=== PATIENT | male | born 1990 | race Caucasian/White ===

== ENCOUNTER 2025-01-12 16:46 | Emergency (ER) | payer SELFPAY ==
[2025-01-12] VITALS (11 sets, daily range): BP systolic 137–172; BP diastolic 80–119; PULSE 52–67; RESP 10–20; TEMP 36.7; O2SAT 96–100; BMI 23.5
--- NOTE | 2025-01-12 16:49 | ED_ITS ---
<Statement entered by Donta Mcneill MD - 01/12/25 23:24> I was consulted by the ALANNAH, and we discussed the complexity of the problems being addressed. I approved the treatment and management plan for this patient's care in the emergency department, thus performing a substantive portion of the medical decision making. Donta Mcneill MD, ALEJANDRO, FACEP Discharge Plan Disposition Patient Disposition: Home, Self-Care Condition: Good Prescriptions Prescriptions: No Action No Known Home Medications Referrals Follow up/Referrals: Provider,Referral, [Primary Care Provider, Medical] - See instructions Activity Restrictions/Add. Instructions Additional Instructions/Restrictions: I recommend that you establish care with a primary care physician and get referral to ear nose and throat. You may also need a further workup if this persists with MRI. We have essentially ruled out any serious or life- threatening condition today. If you have persistent new or worsening signs or symptoms follow-up with your PCP within 48 hours or return to the ER as needed. Clinical Impressions Clinical Impression: Dizziness Print Language Print Language: Marshallese Discharge ED Provider: Donta Mcneill General Adult HPI General Chief complaint: Dizziness Stated complaint: dizzy,light headed,weakness Time Seen by Provider: 01/12/25 16:49 History of Present Illness HPI narrative: Patient presents for evaluation of initially lightheadedness . Patient states his symptoms have been ongoing for at least a couple of weeks. Patient states that he has been under a lot of stress and works a very physically demanding job in construction and reports that he may not be eating and drinking normally. He states he has periodically had lightheadedness primarily when trying to ambulate or walk. He cannot quantify whether it is dizziness or spinning. However today the dizziness is gotten to the point where he vomited and is having much more difficulty walking. He denies chest pain, shortness of breath, fever, chills, hemoptysis, hematochezia, melena, nausea, vomiting, diarrhea, trauma, alcohol, illicit or street drug use. He does vape however. Related Data Home Medications ?Medication ?Instructions ?Recorded ?Confirmed No Known Home Medications 01/12/2509/07 Allergies Allergy/AdvReac Type Severity Reaction Status Date / Time No Known Allergies Allergy Verified 01/12/25 16:55 [facility] Disclaimer: The information contained in this section may have been updated after the patient was seen, as this information can be updated by other users. Social History Smoking Status: Current every day smoker alcohol intake: never current occupational status: employed Travel in the last 8 weeks?: Inside the [place] ROS Obtained: Yes Systems reviewed as appropriate & no additional complaints except as documented Physical Exam General General appearance: alert and in no apparent distress Respiratory Respiratory exam: Present normal lung sounds bilaterally Cardiovascular Cardiovascular exam: Present regular rate Neurological Exam Neurological exam: Present alert, oriented X3, CN II-XII intact and normal gait; Absent motor sensory deficit Medical Decision Making Medical Records Medical records reviewed: Yes I reviewed the patient's medical records. Screening: Per USPSTF and CDC recommendations, given the prevalence of disease in our region, it is our hospital?s policy to screen for HIV and viral Hepatitis for all patients aged 18 and over and those with ongoing risk factors. Jd Inquiry Pt receiving controlled substance: No Vital Signs: 01/12/25 16:52 01/12/25 16:56 01/12/25 17:00 Temperature 98.1 F Temperature Source Oral Pulse Rate 63 58 L Pulse Rate [Left Radial] 62 Respiratory Rate 20 12 Blood Pressure 172/98 H 172/104 H Blood Pressure [Right Arm] 172/98 H Blood Pressure Mean [Right Arm] 122 02 Sat by Pulse Oximetry 99 100 99 Oxygen Delivery Method Room Air Room Air 01/12/25 17:05 01/12/25 17:20 01/12/25 17:45 Temperature Temperature Source Pulse Rate 67 56 L 54 L Pulse Rate [Left Radial] Respiratory Rate 14 17 14 Blood Pressure 160/119 H 165/93 H 161/90 H Blood Pressure [Right Arm] Blood Pressure Mean [Right Arm] 02 Sat by Pulse Oximetry 100 98 100 Oxygen Delivery Method 01/12/25 18:00 01/12/25 18:35 Temperature Temperature Source Pulse Rate 52 L 58 L Pulse Rate [Left Radial] Respiratory Rate 18 10 L Blood Pressure 141/91 H 161/93 H Blood Pressure [Right Arm] Blood Pressure Mean [Right Arm] 02 Sat by Pulse Oximetry 96 99 Oxygen Delivery Method Lab Data Lab results reviewed: Yes I reviewed the patient's lab results. Lab Results 01/12/25 16:56: WBC 8.4, RBC 5.02, Hgb 15.6, Hct 44.7, MCV 89.0, MCH 31.1, MCHC 34.9, RDW 11.8, Plt Count 268, MPV 10.4, Neut % (Auto) 65.2, Lymph % (Auto) 28.0, Casey % (Auto) 5.6, Eos % (Auto) 0.5, Baso % (Auto) 0.5, Neut # (Auto) 5.5, Lymph # (Auto) 2.3, Casey # (Auto) 0.5, Eos # (Auto) 0.0, Baso # (Auto) 0.0, ESR 2, Sodium 142, Potassium 4.1, Chloride 104, Carbon Dioxide 30, Anion Gap 12.1, BUN 11, Creatinine 1.10, Estimated Creat Clear 89, Estimated GFR 76, Est GFR ( Amer) 92, Glucose 122 H, Calcium 9.9, Magnesium 2.1, Total Bilirubin 0.8, AST 24, ALT 20, Alkaline Phosphatase 76, Troponin I < 0.01, C-Reactive Protein < 0.3, Total Protein 8.1, Albumin 5.0, Globulin 3.1, Albumin/Globulin Ratio 1.6, TSH 1.65, Free T4 Index 2.6 L, Thyroxine (T4) 7.5, T3 Uptake 34 01/12/25 17:30: Urine Color Yellow, Urine Appearance Clear, Urine pH 6.5, Ur Specific Allison 1.010, Urine Protein Negative, Urine Glucose (UA) Negative, Urine Ketones Negative, Urine Blood Trace-i, Urine Nitrate Negative, Urine Bilirubin Negative, Urine Urobilinogen 0.2, Ur Leukocyte Esterase Negative, Urine RBC Occasional, Urine WBC None, Ur Squamous Epith Cells None, Urine Bacteria None 01/12/25 16:56 01/12/25 16:56 Orders (Tests/Meds): ED MEDICATIONS Generic Name Dose Route Start Last Admin Trade Name Freq PRN Reason Stop Dose Admin Sodium Chloride 10 ml 01/12/25 17:40 01/12/25 17:42 Sodium Chloride 0.9% 10ml Syr (Rad Only) IV 02/11/25 17:39 10 ml NEEDED PRN Administration Maintain IV Site Discontinued Medications Generic Name Dose Route Start Last Admin Trade Name Freq PRN Reason Stop Dose Admin Acetaminophen 1,000 mg 01/12/25 18:39 Acetaminophen 1,000mg/100ml Vial IV 01/12/25 18:40 ONCE ONE Dexamethasone Sodium Phosphate 10 mg 01/12/25 18:39 Dexamethasone 4mg/Ml 5ml Mdv IV 01/12/25 18:40 ONCE ONE Sodium Chloride 1,000 mls @ 999 mls/hr 01/12/25 17:10 01/12/25 17:28 Sod Chlor 0.9% 1000ml Bag IV 01/12/25 18:10 999 mls/hr .Q1H1M ONE Administration Iopamidol 80 ml 01/12/25 17:40 01/12/25 17:42 Iopamidol-370 (76%);100ml Bottle IV 01/12/25 17:41 80 ml ONCE ONE Administration Ketorolac Tromethamine 15 mg 01/12/25 18:39 Ketorolac 30mg/Ml Vial IV 01/12/25 18:40 ONCE ONE Meclizine HCl 25 mg 01/12/25 17:10 01/12/25 17:28 Meclizine 25mg Tablet PO 01/12/25 17:11 25 mg ONCE ONE Administration Sodium Chloride 50 ml 01/12/25 17:40 01/12/25 17:42 0.9 % Sodium Chloride 50 Ml Vial IV 01/12/25 17:41 50 ml ONCE ONE Administration ORDERS Category Date Time Status CT angio head Stat Cat Scan 01/12/25 17:[address] angio neck Stat Cat Scan 01/12/25 17:[address] head/brain wo con Stat Cat Scan 01/12/25 17:10 Completed CBC w/Auto Diff [Complete Blood Count Auto Diff] Stat Lab 01/12/25 16:56 Completed CMP [Comprehensive Metabolic Panel] Stat Lab 01/12/25 16:56 Completed CRP [C-Reactive Protein] Stat Lab 01/12/25 16:56 Completed ESR [Erythrocyte Sedimentation Rate] Stat Lab 01/12/25 16:56 Completed Magnesium Stat Lab 01/12/25 16:56 Completed Thyroid Panel Stat Lab 01/12/25 16:56 Completed Trop I [Troponin I] Stat Lab 01/12/25 16:56 Completed Troponin I Q3H Lab 01/12/25 20:15 Ordered Troponin I Q3H Lab 01/12/25 23:15 Ordered UA [Urinalysis and Microscopic] Stat Lab 01/12/25 17:30 Completed Medical Decision Narrative: In summary patient is a 34-year-old male who presents to the emergency department for evaluation of lightheadedness dizziness difficulty walking. Patient is initially hypertensive on arrival with a blood pressure 172/98 pulse 63 with normal sinus rhythm on the bedside monitor breathing 20 times a minute satting at 99% on room air upon arrival, afebrile at 98.1. Physical exam reveals a well-nourished well-developed 34-year-old gentlemandisorder electrolyte abnormality versus stroke versus PRES etc. Initial workup will be conducted with hematologic labs CT scan of the head without contrast CT of the head neck angio twelve-lead EKG. Initial interventions include crystalloid bolus and meclizine. Initial workup reviewed by me and his hematologic labs are nonactionable my informal interpretation of his imaging shows no acute processes large vessel occlusion or intracranial abnormality prior to radiology read. Please see formal read for final interpretation. Upon repeat evaluation patient is able to ambulate in the ER without ataxia. Given this there remains diagnostic uncertainty as the cause of his dizziness but it does not certainly appear to be obvious that it is a central cause and we have identified no serious or life-threatening condition. I have advised the patient to follow-up with his PCP in [facility] for further evaluation with ENT and possible outpatient MRI if his symptoms persist. Patient verbalized understanding and agreement. Critical Care Critical Care Time Critical Care Time: No
--- NOTE | 2025-01-12 16:54 | PC.NURSE ---
Glucose 105 @1654
--- NOTE | 2025-01-12 16:55 | ECG_ITS ---
APPROVED REPORT Exam: Resting ECG HR:60 bpm ECG Measurements Heart Rate 60 AXES CO 140 P 64 QRSd 90 QRS 69 QT 413 T 68 QTc 414 Conclusion SINUS RHYTHM NORMAL ECG UNCONFIRMED REPORT Electronically signed by : Rommel Mcneill, 01/14/2025 23:14:58
--- NOTE | 2025-01-12 17:10 | CT_ITS ---
PROCEDURE INFORMATION: Exam: CT Head Without Contrast Exam date and time: 01/12/2025 5:17 PM Age: 34 years old Clinical indication: Dizziness and walking, difficulty; Additional info: Dizziness unsteady gait TECHNIQUE: Imaging protocol: Computed tomography of the head without contrast. Radiation optimization: All CT scans at this facility use at least one of these dose optimization techniques: automated exposure control; mA and/or kV adjustment per patient size (includes targeted exams where dose is matched to clinical indication); or iterative reconstruction. Other technique: STROKE PROTOCOL was implemented. COMPARISON: No relevant prior studies available. FINDINGS: Brain: The IACs are grossly normal. No extra-axial fluid collections. No evidence of acute intracranial hemorrhage. Cerebral/cerebellar price-white differentiation is well maintained. No intracranial mass lesions. No midline shift or herniation. Right cerebellar tonsil is slightly low-lying, reaching the level of the foramen magnum with no pegging or foraminal crowding, consistent with variant cerebellar tonsillar ectopia which does not meet criteria for Chiari 1. Cerebral ventricles: Ventricles normal. Pituitary gland and sella: The sella is grossly normal. Paranasal sinuses: Visualized paranasal sinuses are clear. Mastoid air cells: Visualized mastoid air cells are clear. Pneumatized petrous apices noted with no evidence of apicitis. Orbital cavities: No acute intraorbital findings. Bones: No acute osseous findings. Soft tissues: No acute soft tissue findings. Vasculature: No gross vascular abnormalities. No asymmetric vascular hyperdensities suggestive of thrombosis are identified. IMPRESSION: 1. No acute intracranial process. No intracranial hemorrhage or mass effect. 2. Mild right cerebellar tonsillar ectopia which does not meet criteria for Chiari 1. ASSESSMENT: ASPECTS ([place] Stroke Program Early CT Score) is 10.
[2025-01-12 17:16] LABS: Basophils % 0.5 % (0.1-2.0); Eosinophils % 0.5 % (0.1-12.0); Hematocrit 44.7 % (42.0-52.0); Hemoglobin 15.6 g/dL (14.1-18.0); Immature Granulocytes # 0.02 10^3uL; Immature Granulocytes % 0.2 %; Lymphocytes # 2.3 K/mm3 (0.7-4.5); Mean Corpuscular HGB Conc 34.9 g/dL (31.8-35.4); Mean Corpuscular Hemoglobin 31.1 pg (27.0-31.2); Mean Platelet Volume 10.4 fl (7.4-10.4); Monocytes # 0.5 K/mm3 (0.1-1.0); Monocytes % 5.6 % (1.7-9.3); Neutrophils # 5.5 K/mm3 (1.8-7.8); Neutrophils % 65.2 % (37.0-80.0); Nucleated Red Blood Cells # 0 10^3/uL; Nucleated Red Blood Cells % 0 %; Platelet Count 268 K/mm3 (142-424); Red Blood Count 5.02 M/mm3 (4.60-6.20); Red Cell Distribution Width 11.8 % (11.5-17.5); Red Cell Distribution Width-SD 37.8 fL; White Blood Count 8.4 K/mm3 (4.8-10.8)
[2025-01-12 17:18] LABS: Chloride 104 mmol/L (98-107); Potassium 4.1 mmoL/L (3.5-5.1); Sodium 142 mmol/L (136-145)
[2025-01-12 17:21] LABS: Alanine Aminotransferase 20 U/L (12-78); Albumin/Globulin Ratio 1.6 (1.1-1.8); Alkaline Phosphatase 76 U/L (38-126); Anion Gap 12.1 mEq/L (5-15); Aspartate Amino Transferase 24 U/L (17-59); Bilirubin,Total 0.8 mg/dl (0.2-1.3); Blood Urea Nitrogen 11 mg/dl (9-20); Carbon Dioxide 30 mmol/L (22.0-30.0); Creatinine Clearance Estimated 89 mL/min (50-200); Estimated Glomerular Filt Rate 76 ml/min (>60); GFR (African American) 92 ML/MIN (>60); Globulin 3.1 g/dL (1.3-3.2); Total Protein,Serum 8.1 g/dl (6.3-8.2)
[2025-01-12 17:22] LABS: Calcium 9.9 mg/dl (8.4-10.2); Glucose 122 mg/dl (74-100); Magnesium 2.1 mg/dl (1.6-2.3)
--- NOTE | 2025-01-12 17:26 | CT_ITS ---
PROCEDURE INFORMATION: Exam: CTA Head With Contrast, Arteriography Exam date and time: 01/12/2025 5:36 PM Age: 34 years old Clinical indication: Dizziness and giddiness and other: Difficulty walking; Additional info: Dizziness difficulty walking TECHNIQUE: Imaging protocol: Computed tomographic angiography of the head with contrast. Exam focused on the arteries. 3D rendering (Not supervised by radiologist): MIP and/or 3D reconstructed images were created by the technologist. Radiation optimization: All CT scans at this facility use at least one of these dose optimization techniques: automated exposure control; mA and/or kV adjustment per patient size (includes targeted exams where dose is matched to clinical indication); or iterative reconstruction. Contrast material: ISOVUE; Contrast volume: 80 ml; Contrast route: INTRAVENOUS (IV); COMPARISON: CT HEAD/BRAIN WO CON 01/12/2025 5:17 PM FINDINGS: ANTERIOR CIRCULATION: Right internal carotid artery: The right ICA petrous, cavernous, and supraclinoid segments are unremarkable. Right middle cerebral artery: Variant proximal MCA branching No occlusion or significant stenosis. No aneurysm. Right anterior cerebral artery: Unremarkable. No occlusion or significant stenosis. No aneurysm. The anterior communicating artery is unremarkable. Left internal carotid artery: The left ICA petrous, cavernous, and supraclinoid segments are unremarkable. Left middle cerebral artery: Unremarkable. No occlusion or significant stenosis. No aneurysm. Left anterior cerebral artery: Unremarkable. No occlusion or significant stenosis. No aneurysm. POSTERIOR CIRCULATION: Right vertebral artery: Unremarkable. No occlusion or significant stenosis. No aneurysm. Left vertebral artery: Left vertebral artery is mildly dominant. No occlusion or significant stenosis. No aneurysm. Basilar artery: Unremarkable. No occlusion or significant stenosis. No aneurysm. Right posterior cerebral artery: Unremarkable. No occlusion or significant stenosis. No aneurysm. Left posterior cerebral artery: Unremarkable. No occlusion or significant stenosis. No aneurysm. Veins: The dural venous sinuses and major cortical veins enhance appropriately without evidence of thrombosis. Brain: No enhancing brain lesions or vascular malformations are identified. Mild right cerebellar tonsillar ectopia which does not meet criteria for Chiari 1. Cerebral ventricles: No ventriculomegaly. Bones/joints: Unremarkable. No acute fracture. Soft tissues: Unremarkable. IMPRESSION: 1. No acute vascular abnormalities. No evidence of large vessel occlusion or significant stenosis. 2. No acute intracranial process is evident.
--- NOTE | 2025-01-12 17:26 | CT_ITS ---
PROCEDURE INFORMATION: Exam: CTA Neck With Contrast Exam date and time: 01/12/2025 5:36 PM Age: 34 years old Clinical indication: Dizziness and giddiness and other: Difficulty walking; Additional info: Dizziness difficulty walking TECHNIQUE: Imaging protocol: Computed tomographic angiography of the neck with contrast. Exam focused on the cervical segments of the vasculature. 3D rendering (Not supervised by radiologist): MIP and/or 3D reconstructed images were created by the technologist. Radiation optimization: All CT scans at this facility use at least one of these dose optimization techniques: automated exposure control; mA and/or kV adjustment per patient size (includes targeted exams where dose is matched to clinical indication); or iterative reconstruction. Contrast material: ISOVUE; Contrast volume: 80 ml; Contrast route: INTRAVENOUS (IV); COMPARISON: CT HEAD/BRAIN WO CON 01/12/2025 5:17 PM FINDINGS: Right common carotid artery: Normal. No stenosis. No dissection or occlusion. Right internal carotid artery: Low carotid bifurcation lying at the C5-C6 level, anatomic variant. No stenosis. No dissection or occlusion. Right external carotid artery: Normal. No stenosis. No dissection or occlusion. Left common carotid artery: Normal. No stenosis. No dissection or occlusion. Left internal carotid artery: Low carotid bifurcation lying at the C5-C6 level, anatomic variant. No stenosis. No dissection or occlusion. Left external carotid artery: Normal. No stenosis. No dissection or occlusion. Right vertebral artery: Normal. No stenosis. No dissection or occlusion. Left vertebral artery: Left vertebral artery is mildly dominant. No stenosis. No dissection or occlusion. Brachiocephalic artery: The brachiocephalic artery is unremarkable. Right subclavian artery: The right subclavian artery is unremarkable. Left subclavian artery: The left subclavian artery evaluation was limited by streak artifact from adjacent hyperdense venous contrast, without gross abnormality. Aorta: The visualized aortic arch is unremarkable. Thyroid: The thyroid gland is unremarkable. Soft tissues: No significant soft tissue swelling or hematoma. Bones/joints: No acute osseous abnormalities are identified. Lungs: The visualized pulmonary apices are clear. IMPRESSION: No vascular occlusions or significant stenosis. No acute findings. REFERENCES: NASCET CRITERIA. The degree of stenosis in the cervical segment of the internal carotid artery is based on NASCET criteria. Normal is no stenosis. Mild is less than 50% stenosis. Moderate is 50-69% stenosis. Severe is 70% to 99% stenosis. Total occlusion is no detectable patent lumen.
[2025-01-12] MEDS: MECLIZINE 25MG TABLET 25 MG PO (17:28)
[2025-01-12] MEDS: 0.9 % SODIUM CHLORIDE 1000ML 1,000 ML 999 ML IV (17:28)
--- NOTE | 2025-01-12 17:28 | PC.NURSE ---
pt is going for CT at this time
[2025-01-12 17:37] LABS: Erythrocyte Sedimentation Rate 2 mm/hr (0-15)
[2025-01-12 17:38] LABS: C-Reactive Protein < 0.3 mg/L (0-4); Troponin I < 0.01 ng/ml (0.00-0.034)
[2025-01-12 17:41] LABS: Triiodothryronine (T3) Uptake 34 % (23.5-40.5)
[2025-01-12 17:42] LABS: Free Thyroxine Index 2.6 ug/dL (5.93-13.13); T4 (Thyroxine) 7.5 ug/dl (5.53-11.0)
[2025-01-12] MEDS: IOPAMIDOL-370 (76%);100ML BOTTLE 80 ML IV (17:42)
[2025-01-12] MEDS: 0.9 % SODIUM CHLORIDE 50 ML VIAL IV (17:42)
[2025-01-12] MEDS: SODIUM CHLORIDE 0.9% 10ML SYR (RAD ONLY) 10 ML IV (17:42)
[2025-01-12 17:49] LABS: Microscopic, Urine URINE MICROSCOPIC (MICROSCOPIC)
[2025-01-12 17:53] LABS: Appearance,Urine CLEAR (Clear); Bilirubin,Urine Negative (Negative); Blood, Urine TRACE-I (Negative); Color,Urine YELLOW (Yellow); Glucose,Urine (UA) Negative (Negative); Ketones,Urine Negative (Negative); Leukocyte Esterase,Urine Negative (Negative); Nitrate,Urine Negative (Negative); PH,Urine 6.5 (5.0-8.5); Protein,Urine Negative (Negative); Urobilinogen,Urine 0.2 EU/dl (0.2)
[2025-01-12 17:55] LABS: Thyroid Stimulating Hormone 1.65 uIU/mL (0.465-4.68)
[2025-01-12 18:06] LABS: RBC,Urine Occasional #/hpf (0-3)
--- NOTE | 2025-01-12 18:23 | PC.NURSE ---
Dr Mcneill s/w GABRIEL for critical findings
[2025-01-12] MEDS: ACETAMINOPHEN 1,000MG/100ML VIAL 1000 MG IV (19:21)
[2025-01-12] MEDS: KETOROLAC 30MG/ML VIAL 15 MG IV (19:21)
[2025-01-12] MEDS: DEXAMETHASONE 4MG/ML 5ML MDV 10 MG IV (19:22)
--- NOTE | 2025-01-12 19:37 | PC.NURSE ---
rounded on pt. medicated per MAR. snack given per request. call light in reach. family at bedside.
== END 2025-01-12 20:05 | disposition home or self-care (01) ==
PROVIDERS: Physician Assistant; Emergency Provider Student in an Organized Health Care Education/Training Program
DX: R11.2 Nausea with vomiting, unspecified (principal); R42 Dizziness and giddiness; R53.1 Weakness; F17.290 Nicotine dependence, other tobacco product, uncomplicated
CPT/HCPCS: 70450; 70496; 70498; 80053; 81001; 83735; 84436; 84443; 84479; 84484; 85025; 85651; 86140; 93005; 96361; 96374; 96375; 99285; J0131; J1100; J1885; J7030; Q9967